=== PATIENT | female | born 1995 | race Caucasian/White ===

== ENCOUNTER 2016-10-09 11:35 | Emergency (ER) | payer BC ==
[2016-10-09 13:15] VITALS: BP 119/60
--- NOTE | 2016-10-09 14:56 | UC ---
Respiratory Complaint HPI - HPI Summary HPI Summary: URI symptoms for a week. Very irritating cough, shoaib at night. No fever. NO vomiting or rash. Mild ST related to cough. For past 2d, left ear pressure and difficulty hearing. - History of Current Complaint Chief Complaint: UCRespiratory Stated Complaint: EAR PAIN,COUGH Time Seen by Provider: 10/09/16 14:43 Hx Obtained From: Patient Hx Last Menstrual Period: 10/08/16 Onset/Duration: Gradual Onset, Lasting Weeks - 1 Timing: Constant Severity Initially: Mild Severity Currently: Mild Aggravating Factors: Recumbent Position Alleviating Factors: Nothing Associated Signs And Symptoms: Positive: URI, Nasal Congestion, Hoarseness, Sinus Discomfort. Negative: Chills, Wheezing, Hemoptysis - Risk Factors Pulmonary Embolism Risk Factors: Negative Cardiac Risk Factors: Negative Pseudomonas Risk Factors: Negative Tuberculosis Risk Factors: Negative - Allergies/Home Medications Allergies/Adverse Reactions: Allergies Allergy/AdvReac Type Severity Reaction Status Date / Time No Known Allergies Allergy Verified 10/09/16 13:16 Home Medications: Home Medications GuaiFENesin DM* [Robitussin DM*] 10 ml PO Q6H PRN 10/09/16 [History Confirmed ] PMH/Surg Hx/FS Hx/Imm Hx Previously Healthy: Yes - Surgical History Surgical History: None - Family History Known Family History: Positive: Other - ulcer: mom - Social History Occupation: Student Lives: Alone - dorm Alcohol Use: Weekly Substance Use Type: None Smoking Status (MU): Never Smoked Tobacco Review of Systems Constitutional: Fatigue Skin: Negative Eyes: Negative ENT: Sore Throat, Nasal Discharge Respiratory: Cough Cardiovascular: Negative Gastrointestinal: Negative Genitourinary: Negative Motor: Negative Neurovascular: Negative Musculoskeletal: Negative Neurological: Negative Psychological: Negative All Other Systems Reviewed And Are Negative: Yes Physical Exam Triage Information Reviewed: Yes Appearance: Well-Appearing, No Pain Distress, Well-Nourished Vital Signs: Initial Vital Signs Temp 98.5 F 10/09/16 13:13 Pulse 93 10/09/16 13:13 Resp 16 10/09/16 13:13 BP 119/60 10/09/16 13:13 Pulse Ox 100 10/09/16 13:13 Vital Signs Reviewed: Yes Eye Exam: Normal ENT: Positive: Hearing grossly normal, Pharynx normal, Nasal congestion, TMs normal. Negative: Pharyngeal erythema, TM bulging, TM dull, TM red, Tonsillar swelling, Tonsillar exudate, Trismus, Muffled/hoarse voice Neck exam: Normal Respiratory Exam: Normal Respiratory: Positive: Lungs clear Cardiovascular Exam: Normal Musculoskeletal Exam: Normal Neurological Exam: Normal Psychological Exam: Normal Skin Exam: Normal UC Diagnostic Evaluation - Laboratory O2 Sat by Pulse Oximetry: 100 Respiratory Course/Dx - Differential Dx/Diagnosis Differential Diagnosis/HQI/PQRI: Bronchitis, Lower Resp Infection, Sinusitis Provider Diagnoses: URI Discharge - Discharge Plan Condition: Stable Disposition: HOME Prescriptions: Benzonatate CAP* [Tessalon CAP*] 100 mg PO TID #30 cap Guaifenesin-Codeine [Cheratussin AC] 1 - 2 teasp PO Q6HR PRN #120 ml MDD 30ml PRN Reason: Cough Oxymetazoline 0.05% NASAL SPR* [Afrin 0.05% NASAL SPRAY*] 1 spray NASAL Q12H #1 btl Patient Education Materials: Upper Respiratory Infection (ED) Referrals: Non Staff,Doctor [Primary Care Provider] -
== END 2016-10-09 14:57 | disposition home or self-care (01) ==
LOC: UCCORT 11:35
DX: J06.9 Acute upper respiratory infection, unspecified (principal); R09.81 Nasal congestion
CPT/HCPCS: 99212; G0463